=== PATIENT | female | born 1960 | race Caucasian/White ===

== ENCOUNTER 2022-11-10 10:46 | Emergency (ER) | payer BC ==
--- OUTSIDE RECORDS SUMMARY | 2022-11-10 11:33 | XMS REPORT | Continuity of Care Document ---
:1960 Author Organization [facility] t Address [address] [place] [address] [address] [place] [address] Care Team Providers Name Role Phone JOESPHINE DANG Primary Care Physician Unavailable JOSEPHINE DANG Attending Clinician Unavailable JAXON FRANK Attending Clinician Unavailable ASHLYN CERVANTES Attending Clinician Unavailable ASHLYN CERVANTES Attending Clinician Unavailable Josephine Dang MD Attending Clinician [phone] BR[place] [place] Attending Clinician Unavailable [place] DIRECTOR OF TEENAGE ACTIVITIESBryan Alvarez Attending Clinician Unknown, Attending Attending Clinician Unavailable Doctor Unassigned, [place] Attending Clinician Unavailable Lab, Ang - Db Attending Clinician Unavailable LIAN PAULINO Attending Clinician Unavailable Ebrahim Lian OZUNA Attending Clinician Court Lemus MD Attending Clinician COURT LEMUS Attending Clinician Unavailable Tahira ALEJANDRE Attending Clinician Unavailable Tahira Momin Attending Clinician Elizabeth Omer Attending Clinician ELIZABETH PEREZ Attending Clinician Unavailable KEREN BROOKS Attending Clinician Unavailable Keren Arboleda Attending Clinician Only, Ang Db Test Attending Clinician Unavailable Tahira ALEJANDRE Admitting Clinician Unavailable Payers Payer Name Policy Type Policy Number Effective Date Expiration Date [facility] [id number] 2020 00:00:00 Problems Condition Condition Condition Status Onset Resolution Last Treating Co mments Source Name Details Category Date Date Treatment Clinician Date No known No known Disease Unive rs active active ity of problems problems [facility] Hypertensi Hypertensi Disease Active U nivers on on ity of [facility] Hyperlipid Hyperlipid Disease Active U nivers emia emia ity of [facility] Gout Gout Disease Active Univers ity [facility] Allergies, Adverse Reactions, Alerts Allergy Allergy Status Severity Reaction(s) Onset Inactive Treating Comm ents Source Name Type Date Date Clinician CODEINE DRUG Active High Hallucinates 2021-03 Uni vers INGREDI 05-05 ity of 00:00: [place] [facility] Branch Codeine Propensi Active Hallucinatio 2021-03 U nivers ty to ns 05-05 ity of adverse 00:00: [place] reaction 00 Medical s Branch NO KNOWN Drug Active Univers ALLERGIE Class ity of S [facility] Social History Social Habit Start Date Stop Date Quantity Comments Source Exposure to 2022-07-17 2022-07-27 Not sure [facility] SARS-CoV-2 00:00:00 09:50:00 [facility] (event) [place] Alcohol intake 2022-07-27 2022-07-27 Lifetime University of 00:00:00 00:00:00 non-drinker [facility] (finding) [place] Tobacco use and 2020-12-17 2020-12-17 Smokeless tobacco Un iversity of exposure 00:00:00 00:00:00 non-user [facility] Sex [birth year] Universit y of 00:00:00 00:00:00 [facility] Smoking Status Start Date Stop Date Source Never smoked tobacco [facility] Medications Ordered Filled Start Stop Current Ordering Indication Dosage Frequency Signature Comments Components Source Medication Medication Date Date Medication? Clinician (SIG) Name Name indomethaci Yes [id number] 75mg Take 1 Univers n 75 mg CR 5-31 9108 capsule by ity of capsule 00:00: mouth 2 (two) Medical times [place] daily with meals as needed for Pain (scale 7-10). methylPREDN Yes [id number] follow Univers ISolone 07-27 package ity of (MEDROL, 00:00: directions Milad as CYNTHIA,) 4 mg 00 Medical tablets Branch methylPREDN 3-0 Yes [id number] follow Univers ISolone 5-01 package ity of (MEDROL, 00:00: directions [place] as CYNTHIA,) 4 mg 00 Medical tablets Branch methylPREDN 3-0 Yes [id number] follow Univers ISolone 5-01 package ity of (MEDROL, 00:00: directions [place] as CYNTHIA,) 4 mg 00 Medical tablets Branch methylPREDN 3-0 Yes [id number] follow Univers ISolone 5-01 package ity of (MEDROL, 00:00: directions [place] CYNTHIA,) 4 mg 00 Medical tablets Branch methylPREDN 3-0 Yes [id number] follow Univers ISolone 5-01 package ity of (MEDROL, 00:00: directions [place] CYNTHIA,) 4 mg 00 Medical tablets Branch methylPREDN 3-0 Yes [id number] follow Univers ISolone 5-01 package ity of (MEDROL, 00:00: directions [place] CYNTHIA,) 4 mg 00 Medical tablets Branch benzonatate 2022-0 2022- No [id number] 200mg Take 1 Univers 200 mg 5-01 05-12 capsule by ity of capsule 00:00: 04:59 mouth 3 [place] 00 :00 (three) Medical times Branch daily as needed for Cough for up to 10 days. benzonatate 2022-0 2022- No [id number] 200mg Take 1 Univers 200 mg 5-01 05-12 capsule by ity of capsule 00:00: 04:59 mouth 3 [place] 00 :00 (three) Medical times Branch daily as needed for Cough for up to 10 days. benzonatate 2022-0 2022- No [id number] 200mg Take 1 Univers 200 mg 5-01 05-12 capsule by ity of capsule 00:00: 04:59 mouth 3 [place] 00 :00 (three) Medical times Branch daily as needed for Cough for up to 10 days. benzonatate 2022-0 2022- No [id number] 200mg Take 1 Univers 200 mg 5-01 05-12 capsule by ity of capsule 00:00: 04:59 mouth 3 [place] 00 :00 (three) Medical times Branch daily as needed for Cough for up to 10 days. amoxicillin 2022-0 2022- No [id number] 1{tbl} Take 1 Univers -clavulanat 5-01 05-09 tablet by it y of e 00:00: 04:59 mouth in [place] (AUGMENTIN) 00 :00 the Medical 875-125 mg morning Branch per tablet and 1 tablet in the evening. Do all this for 7 days. amoxicillin 2022-0 2023- No [id number] 1{tbl} Take 1 Univers -clavulanat 5-01 05-09 tablet by it y of e 00:00: 04:59 mouth in [place] (AUGMENTIN) 00 :00 the Medical 875-125 mg morning Branch per tablet and 1 tablet in the evening. Do all this for 7 days. fexofenadin 2022-0 Yes 180mg Take 1 Uni vers e 180 mg 4-13 tablet by ity of tablet 10:04: mouth in [place] 31 the Medical morning. Branch cholecalcif 2022-0 Yes 1000U Take 1 Uni vers luna, 4-13 tablet by ity of vitamin D3, 10:04: [place] (VITAMIN 31 the Medical D3) 25 mcg morning. Branc h (1,000 unit) tablet cranberry 0 Yes 1{tbl} Take 1 Univ ers fruit 4-13 tablet by ity of concentrate 10:04: mouth in [place] (AZO 31 the Medical CRANBERRY morning. Branch ORAL) cromolyn 2022-0 Yes 2{spray Use 2 Unive rs (NASALCROM) 4-13 } Sprays in ity of 5.2 10:04: each [place] mg/spray (4 31 nostril Medic al %) nasal once daily Branc h spray as needed for Other (allergies ). propylene 2022-0 Yes 2[drp] Place 2 Uni vers glycol/peg 4-13 Drops in ity o f 400/PF 10:04: each eye 2 [place] (SYSTANE 31 (two) Medical ULTRA, PF, times Branch OPHTHALMIC) daily as needed. fexofenadin 2022-0 Yes 180mg Take 1 Uni vers e 180 mg 4-13 tablet by ity of tablet 10:04: mouth in [place] 31 the Medical morning. Branch cholecalcif 2022-0 Yes 1000U Take 1 Uni vers luna, 4-13 tablet by ity of vitamin D3, 10:04: mouth in [place] (VITAMIN 31 the Medical D3) 25 mcg morning. Branc h (1,000 unit) tablet cranberry 2023-0 Yes 1{tbl} Take 1 Univ ers fruit 4-13 tablet by ity of concentrate 10:04: mouth in [place] (AZO 31 the Medical CRANBERRY morning. Branch ORAL) cromolyn 2023-0 Yes 2{spray Use 2 Unive rs (NASALCROM) 4-13 } Sprays in ity of 5.2 10:04: each [place] mg/spray (4 31 nostril Medic al %) nasal once daily Branc h spray as needed for Other (allergies ). propylene 2023-0 Yes 2[drp] Place 2 Uni vers glycol/peg 4-13 Drops in ity o f 400/PF 10:04: each eye 2 [place] (SYSTANE 31 (two) Medical ULTRA, PF, times Branch OPHTHALMIC) daily as needed. fexofenadin 2023-0 Yes 180mg Take 1 Uni vers e 180 mg 4-13 tablet by ity of tablet 10:04: mouth in [place] [address] the Medical morning. Branch cholecalcif 2023-0 Yes 1000U Take 1 Uni vers luna, 4-13 tablet by ity of vitamin D3, 10:04: mouth in [place] (VITAMIN 31 the Medical D3) 25 mcg morning. Branc h (1,000 unit) tablet cranberry 3-0 Yes 1{tbl} Take 1 Univ ers fruit 4-13 tablet by ity of concentrate 10:04: mouth in [place] (AZO 31 the Medical CRANBERRY morning. Branch ORAL) cromolyn 2023-0 Yes 2{spray Use 2 Unive rs (NASALCROM) 4-13 } Sprays in ity of 5.2 10:04: each [place] mg/spray (4 31 nostril Medic al %) nasal once daily Branc h spray as needed for Other (allergies ). propylene 2023-0 Yes 2[drp] Place 2 Uni vers glycol/peg 4-13 Drops in ity o f 400/PF 10:04: each eye 2 [place] (SYSTANE 31 (two) Medical ULTRA, PF, times Branch OPHTHALMIC) daily as needed. fexofenadin 2023-0 Yes 180mg Take 1 Uni vers e 180 mg 4-13 tablet by ity of tablet 10:04: mouth in [place] 31 the Medical morning. Branch cholecalcif 2023-0 Yes 1000U Take 1 Uni vers luna, 4-13 tablet by ity of vitamin D3, 10:04: mouth in [place] (VITAMIN 31 the Medical D3) 25 mcg morning. Branc h (1,000 unit) tablet cranberry 3-0 Yes 1{tbl} Take 1 Univ ers fruit 4-13 tablet by ity of concentrate 10:04: mouth in [place] (AZO 31 the Medical CRANBERRY morning. Branch ORAL) cromolyn 2023-0 Yes 2{spray Use 2 Unive rs (NASALCROM) 4-13 } Sprays in ity of 5.2 10:04: each [place] mg/spray (4 31 nostril Medic al %) nasal once daily Branc h spray as needed for Other (allergies ). propylene 2023-0 Yes 2[drp] Place 2 Uni vers glycol/peg 4-13 Drops in ity o f 400/PF 10:04: each eye 2 [place] (SYSTANE 31 (two) Medical ULTRA, PF, times Branch OPHTHALMIC) daily as needed. fexofenadin 2023-0 Yes 180mg Take 1 Uni vers e 180 mg 4-13 tablet by ity of tablet 10:04: mouth in [place] [address] the Medical morning. [place] cholecalcif 3-0 Yes 1000U Take 1 Uni vers luna, 4-13 tablet by ity of vitamin D3, 10:04: mouth in [place] (VITAMIN 31 the Medical D3) 25 mcg morning. Branc h (1,000 unit) tablet cranberry 3-0 Yes 1{tbl} Take 1 Univ ers fruit 4-13 tablet by ity of concentrate 10:04: mouth in [place] (AZO 31 the Medical CRANBERRY morning. Branch ORAL) cromolyn 2023-0 Yes 2{spray Use 2 Unive rs (NASALCROM) 4-13 } Sprays in ity of 5.2 10:04: each [place] mg/spray (4 31 nostril Medic al %) nasal once daily Branc h spray as needed for Other (allergies ). propylene 2023-0 Yes 2[drp] Place 2 Uni vers glycol/peg 4-13 Drops in ity o f 400/PF 10:04: each eye 2 [place] (SYSTANE 31 (two) Medical ULTRA, PF, times Branch OPHTHALMIC) daily as needed. fexofenadin 2023-0 Yes 180mg Take 1 Uni vers e 180 mg 4-13 tablet by ity of tablet 10:04: mouth in [place] 31 the Medical morning. Branch cholecalcif 2023-0 Yes 1000U Take 1 Uni vers luna, 4-13 tablet by ity of vitamin D3, 10:04: mouth in [place] (VITAMIN 31 the Medical D3) 25 mcg morning. Branc h (1,000 unit) tablet cranberry 2023-0 Yes 1{tbl} Take 1 Univ ers fruit 4-13 tablet by ity of concentrate 10:04: mouth in [place] (AZO 31 the Medical CRANBERRY morning. Branch ORAL) cromolyn 2023-0 Yes 2{spray Use 2 Unive rs (NASALCROM) 4-13 } Sprays in ity of 5.2 10:04: each [place] mg/spray (4 31 nostril Medic al %) nasal once daily Branc h spray as needed for Other (allergies ). propylene 2023-0 Yes 2[drp] Place 2 Uni vers glycol/peg 4-13 Drops in ity o f 400/PF 10:04: each eye 2 [place] (SYSTANE 31 (two) Medical ULTRA, PF, times [place] OPHTHALMIC) daily as needed. fexofenadin 2023-0 Yes 180mg Take 1 Uni vers e 180 mg 4-13 tablet by ity of tablet 10:04: mouth in [place] 31 the Medical morning. Branch cholecalcif 2023-0 Yes 1000U Take 1 Uni vers luna, 4-13 tablet by ity of vitamin D3, 10:04: mouth in [place] (VITAMIN 31 the Medical D3) 25 mcg morning. Branc h (1,000 unit) tablet cranberry 2023-0 Yes 1{tbl} Take 1 Univ ers fruit 4-13 tablet by ity of concentrate 10:04: mouth in [place] (AZO 31 the Medical CRANBERRY morning. Branch ORAL) cromolyn 2023-0 Yes 2{spray Use 2 Unive rs (NASALCROM) 4-13 } Sprays in ity of 5.2 10:04: each [place] mg/spray (4 31 nostril Medic al %) nasal once daily Branc h spray as needed for Other (allergies ). propylene 2023-0 Yes 2[drp] Place 2 Uni vers glycol/peg 4-13 Drops in ity o f 400/PF 10:04: each eye 2 [place] (SYSTANE 31 (two) Medical ULTRA, PF, times Branch OPHTHALMIC) daily as needed. fexofenadin 2023-0 Yes 180mg Take 1 Uni vers e 180 mg 4-13 tablet by ity of tablet 10:04: mouth in [place] 31 the Medical morning. [place] cholecalcif 2023-0 Yes 1000U Take 1 Uni vers luna, 4-13 tablet by ity of vitamin D3, 10:04: mouth in [place] (VITAMIN 31 the Medical D3) 25 mcg morning. Branc h (1,000 unit) tablet cranberry 2023-0 Yes 1{tbl} Take 1 Univ ers fruit 4-13 tablet by ity of concentrate 10:04: mouth in [place] (AZO 31 the Medical CRANBERRY morning. Branch ORAL) cromolyn 2023-0 Yes 2{spray Use 2 Unive rs (NASALCROM) 4-13 } Sprays in ity of 5.2 10:04: each [place] mg/spray (4 31 nostril Medic al %) nasal once daily Branc h spray as needed for Other (allergies ). propylene 2023-0 Yes 2[drp] Place 2 Uni vers glycol/peg 4-13 Drops in ity o f 400/PF 10:04: each eye 2 [place] (SYSTANE 31 (two) Medical ULTRA, PF, times [place] OPHTHALMIC) daily as needed. fexofenadin 2023-0 Yes 180mg Take 1 Uni vers e 180 mg 4-13 tablet by ity of tablet 10:04: mouth in [place] [address] the Medical morning. [place] cholecalcif 2023-0 Yes 1000U Take 1 Uni vers luna, 4-13 tablet by ity of vitamin D3, 10:04: mouth in [place] (VITAMIN 31 the Medical D3) 25 mcg morning. Branc h (1,000 unit) tablet cranberry 2023-0 Yes 1{tbl} Take 1 Univ ers fruit 4-13 tablet by ity of concentrate 10:04: mouth in [place] (AZO 31 the Medical CRANBERRY morning. Branch ORAL) cromolyn 2023-0 Yes 2{spray Use 2 Unive rs (NASALCROM) 4-13 } Sprays in ity of 5.2 10:04: each [place] mg/spray (4 31 nostril Medic al %) nasal once daily Branc h spray as needed for Other (allergies ). propylene 2022-0 Yes 2[drp] Place 2 Uni vers glycol/peg 4-13 Drops in ity o f 400/PF 10:04: each eye 2 [place] (SYSTANE 31 (two) Medical ULTRA, PF, times Branch OPHTHALMIC) daily as needed. fexofenadin 0 Yes 180mg Take 1 Uni vers e 180 mg 4-13 tablet by ity of tablet 10:04: mouth in [place] 31 the Medical morning. Branch cholecalcif 0 Yes 1000U Take 1 Uni vers luna, 4-13 tablet by ity of vitamin D3, 10:04: mouth in [place] (VITAMIN 31 the Medical D3) 25 mcg morning. Branc h (1,000 unit) tablet cranberry Yes 1{tbl} Take 1 Univ ers fruit 4-13 tablet by ity of concentrate 10:04: mouth in [place] (AZO 31 the Medical CRANBERRY morning. Branch ORAL) cromolyn 0 Yes 2{spray Use 2 Unive rs (NASALCROM) 4-13 } Sprays in ity of 5.2 10:04: each [place] mg/spray (4 31 nostril Medic al %) nasal once daily Branc h spray as needed for Other (allergies ). propylene 2022-0 Yes 2[drp] Place 2 Uni vers glycol/peg 4-13 Drops in ity o f 400/PF 10:04: each eye 2 [place] (SYSTANE 31 (two) Medical ULTRA, PF, times [place] OPHTHALMIC) daily as needed. atorvastati Yes [id number] 20mg Take 1 Univers n 20 mg 4-13 tablet by ity of tablet 00:00: mouth in [place] 00 the Medical morning. Branch losartan-hy 2022-0 Yes [id number] 1{tbl} Take 1 Univers drochloroth 4-13 tablet by ity of iazide 00:00: mouth in [place] 100-12.5 mg 00 the Medical per tablet morning. Branc h allopurinoL 2022-0 Yes [id number] 100mg Take 1 Univers 100 mg 4-13 9108 tablet by ity of tablet 00:00: mouth in [place] 00 the Medical morning. Branch atorvastati 3-0 Yes [id number] 20mg Take 1 Univers n 20 mg 4-13 tablet by ity of tablet 00:00: mouth in [place] 00 the Medical morning. Branch losartan-hy 2022-0 Yes [id number] 1{tbl} Take 1 Univers drochloroth 4-13 tablet by ity of iazide 00:00: mouth in [place] 100-12.5 mg 00 the Medical per tablet morning. Branc h allopurinoL 2022-0 Yes [id number] 100mg Take 1 Univers 100 mg 4-13 9108 tablet by ity of tablet 00:00: mouth in [place] 00 the Medical morning. Branch atorvastati 2022-0 Yes [id number] 20mg Take 1 Univers n 20 mg 4-13 tablet by ity of tablet 00:00: mouth in [place] 00 the Medical morning. Branch losartan-hy 2022-0 Yes [id number] 1{tbl} Take 1 Univers drochloroth 4-13 tablet by ity of iazide 00:00: mouth in [place] 100-12.5 mg 00 the Medical per tablet morning. Branc h allopurinoL 2022-0 Yes [id number] 100mg Take 1 Univers 100 mg 4-13 9108 tablet by ity of tablet 00:00: mouth in [place] 00 the Medical morning. Branch atorvastati 2022-0 Yes [id number] 20mg Take 1 Univers n 20 mg 4-13 tablet by ity of tablet 00:00: mouth in [place] 00 the Medical morning. Branch losartan-hy 2022-0 Yes [id number] 1{tbl} Take 1 Univers drochloroth 4-13 tablet by ity of iazide 00:00: mouth in [place] 100-12.5 mg 00 the Medical per tablet morning. Branc h allopurinoL 3-0 Yes [id number] 100mg Take 1 Univers 100 mg 4-13 9108 tablet by ity of tablet 00:00: mouth in [place] 00 the Medical morning. Branch atorvastati 3-0 Yes [id number] 20mg Take 1 Univers n 20 mg 4-13 tablet by ity of tablet 00:00: mouth in [place] 00 the Medical morning. Branch losartan-hy 2022-0 Yes [id number] 1{tbl} Take 1 Univers drochloroth 4-13 tablet by ity of iazide 00:00: mouth in [place] 100-12.5 mg 00 the Medical per tablet morning. Bran h allopurinoL 2022-0 Yes [id number] 100mg Take 1 Univers 100 mg 4-13 9108 tablet by ity of tablet 00:00: mouth in [place] 00 the Medical morning. Branch atorvastati 2022-0 Yes [id number] 20mg Take 1 Univers n 20 mg 4-13 tablet by ity of tablet 00:00: mouth in [place] 00 the Medical morning. Branch losartan-hy 2022-0 Yes [id number] 1{tbl} Take 1 Univers drochloroth 4-13 tablet by ity of iazide 00:00: mouth in [place] 100-12.5 mg 00 the Medical per tablet morning. Bran h allopurinoL 2022-0 Yes [id number] 100mg Take 1 Univers 100 mg 4-13 9108 tablet by ity of tablet 00:00: mouth in [place] 00 the Medical morning. Branch atorvastati 2022-0 Yes [id number] 20mg Take 1 Univers n 20 mg 4-13 tablet by ity of tablet 00:00: mouth in [place] 00 the Medical morning. Branch losartan-hy 2022-0 Yes [id number] 1{tbl} Take 1 Univers drochloroth 4-13 tablet by ity of iazide 00:00: mouth in [place] 100-12.5 mg 00 the Medical per tablet morning. Bran h allopurinoL 2022-0 Yes [id number] 100mg Take 1 Univers 100 mg 4-13 9108 tablet by ity of tablet 00:00: mouth in [place] 00 the Medical morning. Branch atorvastati 2022-0 Yes [id number] 20mg Take 1 Univers n 20 mg 4-13 tablet by ity of tablet 00:00: mouth in [place] 00 the Medical morning. Branch losartan-hy 2022-0 Yes [id number] 1{tbl} Take 1 Univers drochloroth 4-13 tablet by ity of iazide 00:00: mouth in [place] 100-12.5 mg 00 the Medical per tablet morning. Bran h allopurinoL 3-0 Yes [id number] 100mg Take 1 Univers 100 mg 4-13 9108 tablet by ity of tablet 00:00: mouth in [place] 00 the Medical morning. Branch atorvastati Yes [id number] 20mg Take 1 Univers n 20 mg 4-13 tablet by ity of tablet 00:00: mouth in [place] 00 the Medical morning. Branch losartan-hy 0 Yes [id number] 1{tbl} Take 1 Univers drochloroth 4-13 tablet by ity of iazide 00:00: mouth in [place] 100-12.5 mg 00 the Medical per tablet morning. [facility] h allopurinoL Yes [id number] 100mg Take 1 Univers 100 mg 4-13 9108 tablet by ity of tablet 00:00: mouth in [place] 00 the Medical morning. Branch atorvastati Yes [id number] 20mg Take 1 Univers n 20 mg 4-13 tablet by ity of tablet 00:00: mouth in [place] 00 the Medical morning. Branch losartan-hy Yes [id number] 1{tbl} Take 1 Univers drochloroth 4-13 tablet by ity of iazide 00:00: mouth in [place] 100-12.5 mg 00 the Medical per tablet morning. [facility] h allopurinoL Yes [id number] 100mg Take 1 Univers 100 mg 4-13 9108 tablet by ity of tablet 00:00: mouth in [place] 00 the Medical morning. [place] predniSONE 2021-03- No [id number] 40mg Take 2 U nivers 20 mg 2-07 12-13 tablets by ity of tablet 00:00: 05:59 mouth in [place] 00 :00 the Medical morning Branch for 5 days. azelastine 2021-03 Yes [id number] 1{spray Use 1 Univers 137 mcg 2-05 } [place] in ity of (0.1 %) 00:00: each [place] nasal spray 00 nostril in T[place] dical the Branch morning and 1 [place] in the evening. Use in each nostril as directed fluticasone 2021-03 Yes [id number] 1{spray Use 1 Univers propionate 2-05 } [place] in ity o f 50 00:00: each [place] mcg/actuati 00 nostril in T[place] dical on nasal the [facility] spray morning. cetirizine 2021-03 Yes [id number] 10mg Take 1 U nivers (ZYRTEC) 10 2-05 tablet by ity of mg tablet 00:00: [place] the Medical morning. Branch promethazin 2021-03 Yes [id number] 5mL Take 5 mL Univers e-dextromet 2-05 by mouth 4 it y of horphan 00:00: (four) [place] 6.25-15 00 times Medical mg/5 mL daily as Branch syrup needed for Cough. azelastine 2021-03 Yes [id number] 1{spray Use 1 Univers 137 mcg 2-05 } [place] in ity of (0.1 %) 00:00: each [place] nasal spray 00 nostril in Me dical the Branch morning and 1 [place] in the evening. Use in each nostril as directed fluticasone 2021-03 Yes [id number] 1{spray Use 1 Univers propionate 2-05 } [place] in ity o f 50 00:00: each [place] mcg/actuati 00 nostril in Me dical on nasal the Branch spray morning. cetirizine 2021-03 Yes [id number] 10mg Take 1 U nivers (ZYRTEC) 10 2-05 tablet by ity of mg tablet 00:00: [place] the Medical morning. Branch promethazin 2021-03 Yes [id number] 5mL Take 5 mL Univers e-dextromet 2-05 by mouth 4 it y of horphan 00:00: (four) [place] 6.25-15 00 times Medical mg/5 mL daily as Branch syrup needed for Cough. azelastine 2021-03 Yes [id number] 1{spray Use 1 Univers 137 mcg 2-05 } [place] in ity of (0.1 %) 00:00: each [place] nasal spray 00 nostril in Me dical the Branch morning and 1 [place] in the evening. Use in each nostril as directed fluticasone 2021-03 Yes [id number] 1{spray Use 1 Univers propionate 2-05 } [place] in ity o f 50 00:00: each [place] mcg/actuati 00 nostril in Me dical on nasal the Branch spray morning. cetirizine 2021-03 Yes [id number] 10mg Take 1 U nivers (ZYRTEC) 10 2-05 tablet by ity of mg tablet 00:00: [place] the Medical morning. Branch promethazin 2021-03 Yes [id number] 5mL Take 5 mL Univers e-dextromet 2-05 by mouth 4 it y of horphan 00:00: (four) [place] 6.25-15 00 times Medical mg/5 mL daily as Branch syrup needed for Cough. azelastine 2021-03 Yes [id number] 1{spray Use 1 Univers 137 mcg 2-05 } [place] in ity of (0.1 %) 00:00: each [place] nasal spray 00 nostril in Me dical the Branch morning and 1 [place] in the evening. Use in each nostril as directed fluticasone 2021-03 Yes [id number] 1{spray Use 1 Univers propionate 2-05 } [place] in ity o f 50 00:00: each [place] mcg/actuati 00 nostril in Me dical on nasal the Branch spray morning. cetirizine 2021-03 Yes [id number] 10mg Take 1 U nivers (ZYRTEC) 10 2-05 tablet by ity of mg tablet 00:00: [place] the Medical morning. Branch promethazin 2021-03 Yes [id number] 5mL Take 5 mL Univers e-dextromet 2-05 by mouth 4 it y of horphan 00:00: (four) [place] 6.25-15 00 times Medical mg/5 mL daily as Branch syrup needed for Cough. azelastine 2021-03 Yes [id number] 1{spray Use 1 Univers 137 mcg 2-05 } [place] in ity of (0.1 %) 00:00: each [place] nasal spray 00 nostril in Me dical the Branch morning and 1 [place] in the evening. Use in each nostril as directed fluticasone 2021-03 Yes [id number] 1{spray Use 1 Univers propionate 2-05 } [place] in ity o f 50 00:00: each [place] mcg/actuati 00 nostril in Me dical on nasal the Branch spray morning. cetirizine 2021-03 Yes [id number] 10mg Take 1 U nivers (ZYRTEC) 10 2-05 tablet by ity of mg tablet 00:00: [place] the Medical morning. Branch promethazin 2021-03 Yes [id number] 5mL Take 5 mL Univers e-dextromet 2-05 by mouth 4 it y of horphan 00:00: (four) [place] 6.25-15 00 times Medical mg/5 mL daily as Branch syrup needed for Cough. azelastine 2021-03 Yes [id number] 1{spray Use 1 Univers 137 mcg 2-05 } [place] in ity of (0.1 %) 00:00: each [place] nasal spray 00 nostril in Me dical the Branch morning and 1 [place] in the evening. Use in each nostril as directed fluticasone 2021-03 Yes [id number] 1{spray Use 1 Univers propionate 2-05 } [place] in ity o f 50 00:00: each [place] mcg/actuati 00 nostril in Me dical on nasal the Branch spray morning. cetirizine 2021-03 Yes [id number] 10mg Take 1 U nivers (ZYRTEC) 10 2-05 tablet by ity of mg tablet 00:00: [place] the Medical morning. Branch promethazin 2021-03 Yes [id number] 5mL Take 5 mL Univers e-dextromet 2-05 by mouth 4 it y of horphan 00:00: (four) [place] 6.25-15 00 times Medical mg/5 mL daily as Branch syrup needed for Cough. azelastine 2021-03 Yes [id number] 1{spray Use 1 [facility] 137 mcg 2-05 } [place] in ity of (0.1 %) 00:00: each [place] nasal spray 00 nostril in Me dical the Branch morning and 1 [place] in the evening. Use in each nostril as directed fluticasone 2021-03 Yes [id number] 1{spray Use 1 [facility] propionate 2-05 } [place] in ity o f 50 00:00: each [place] mcg/actuati 00 nostril in Me dical on nasal the Branch spray morning. cetirizine 2021-03 Yes [id number] 10mg Take 1 U nivers (ZYRTEC) 10 2-05 tablet by [place] mg tablet 00:00: [place] the [facility] morning. Branch promethazin 2021-03 Yes [id number] 5mL Take 5 mL [facility] e-dextromet 2-05 by mouth 4 it y of horphan 00:00: (four) [place] 6.25-15 00 times Medical mg/5 mL daily as Branch syrup needed for Cough. azelastine 2021-03 Yes [id number] 1{spray Use 1 [facility] 137 mcg 2-05 } [place] in ity of (0.1 %) 00:00: each [place] nasal spray 00 nostril in Me dical the Branch morning and 1 [place] in the evening. Use in each nostril as directed fluticasone 2021-03 Yes [id number] 1{spray Use 1 [facility] propionate 2-05 } [place] in ity o f 50 00:00: each [place] mcg/actuati 00 nostril in Me dical on nasal the Branch spray morning. cetirizine 2021-03 Yes [id number] 10mg Take 1 [facility] nivers (ZYRTEC) 10 2-05 tablet by [facility]y [place] mg tablet 00:00: [place] the [facility] morning. Branch promethazin 2021-03 Yes [id number] 5mL Take 5 mL [facility] e-dextromet 2-05 by mouth 4 it y of horphan 00:00: (four) [place] 6.25-15 00 times Medical mg/5 mL daily as Branch syrup needed for Cough. azelastine 2021-03 Yes [id number] 1{spray Use 1 [facility] 137 mcg 2-05 } [place] in ity of (0.1 %) 00:00: each [place] nasal spray 00 nostril in Me dical the Branch morning and 1 [place] in the evening. Use in each nostril as directed fluticasone 2021-03 Yes [id number] 1{spray Use 1 [facility] propionate 2-05 } [place] in ity o f 50 00:00: each [place] mcg/actuati 00 nostril in Me dical on nasal the Branch spray morning. cetirizine 2021-03 Yes [id number] 10mg Take 1 [facility] n[facility] (ZYRTEC) 10 2-05 tablet by ity of mg tablet 00:00: [place] 00 the Medical morning. Branch promethazin 2021-03 Yes [id number] 5mL Take 5 mL [facility] e-dextromet 2-05 by mouth 4 it y of horphan 00:00: (four) [place] 6.25-15 00 times Medical mg/5 mL daily as Branch syrup needed for Cough. azelastine 2021-03 Yes [id number] 1{spray Use 1 [facility] 137 mcg 2-05 } [place] in ity of (0.1 %) 00:00: each [place] nasal spray 00 nostril in Me dical the Branch morning and 1 [place] in the evening. Use in each nostril as directed fluticasone 2021-03 Yes [id number] 1{spray Use 1 [facility] propionate 2-05 } [place] in ity o f 50 00:00: each [place] mcg/actuati 00 nostril in Me dical on nasal the Branch spray morning. cetirizine 2021-03 Yes [id number] 10mg Take 1 [facility] n[facility] (ZYRTEC) 10 2-05 tablet by ity of mg tablet 00:00: [place] 00 the Medical morning. Branch promethazin 2021-03 Yes [id number] 5mL Take 5 mL [facility] e-dextromet 2-05 by mouth 4 it y of horphan 00:00: (four) [place] 6.25-15 00 times Medical mg/5 mL daily as Branch syrup needed for Cough. azelastine 2021-03 Yes [id number] 1{spray Use 1 [facility] 137 mcg 2-05 } [place] in ity of (0.1 %) 00:00: each [place] nasal spray 00 nostril in Me dical the Branch morning and 1 [place] in the evening. Use in each nostril as directed fluticasone 2021-03 Yes [id number] 1{spray Use 1 [facility] propionate 2-05 } [place] in ity o f 50 00:00: each [place] mcg/actuati 00 nostril in Me dical on nasal the Branch spray morning. cetirizine 2021-03 Yes [id number] 10mg Take 1 [facility] n[facility] (ZYRTEC) 10 2-05 tablet by ity of mg tablet 00:00: [place] 00 the Medical morning. Branch promethazin 2021-03 Yes [id number] 5mL Take 5 mL [facility] e-dextromet 2-05 by mouth 4 it y of horphan 00:00: (four) [place] 6.25-15 00 times Medical mg/5 mL daily as Branch syrup needed for Cough. azelastine 2021-03 Yes [id number] 1{spray Use 1 [facility] 137 mcg 2-05 } [place] in ity of (0.1 %) 00:00: each [place] nasal spray 00 nostril in Me dical the Branch morning and 1 [place] in the evening. Use in each nostril as directed fluticasone 2021-03 Yes [id number] 1{spray Use 1 [facility] propionate 2-05 } [place] in ity o f 50 00:00: each [place] mcg/actuati 00 nostril in Me dical on nasal the Branch spray morning. cetirizine 2021-03 Yes [id number] 10mg Take 1 [facility] nivers (ZYRTEC) 10 2-05 tablet by ity of mg tablet 00:00: [place] 00 the Medical morning. Branch promethazin 2021-03 Yes [id number] 5mL Take 5 mL [facility] e-dextromet 2-05 by mouth 4 it y of horphan 00:00: (four) [place] 6.25-15 00 times Medical mg/5 mL daily as Branch syrup needed for Cough. azelastine 2021-03 Yes [id number] 1{spray Use 1 [facility] 137 mcg 2-05 } [place] in ity of (0.1 %) 00:00: each [place] nasal spray 00 nostril in Me dical the Branch morning and 1 [place] in the evening. Use in each nostril as directed fluticasone 2021-03 Yes [id number] 1{spray Use 1 [facility] propionate 2-05 } [place] in ity o f 50 00:00: each [place] mcg/actuati 00 nostril in Me dical on nasal the Branch spray morning. cetirizine 2021-03 Yes [id number] 10mg Take 1 [facility] n[facility] (ZYRTEC) 10 2-05 tablet by ity of mg tablet 00:00: [place] 00 the Medical morning. Branch promethazin 2021-03 Yes [id number] 5mL Take 5 mL [facility] e-dextromet 2-05 by mouth 4 it y of horphan 00:00: (four) [place] 6.25-15 00 times Medical mg/5 mL daily as Branch syrup needed for Cough. azelastine 2021-03 Yes [id number] 1{spray Use 1 [facility] 137 mcg 2-05 } [place] in ity of (0.1 %) 00:00: each [place] nasal spray 00 nostril in Me dical the Branch morning and 1 [place] in the evening. Use in each nostril as directed fluticasone 2021-03 Yes [id number] 1{spray Use 1 [facility] propionate 2-05 } [place] in ity o f 50 00:00: each [place] mcg/actuati 00 nostril in Me dical on nasal the Branch spray morning. cetirizine 2021-03 Yes [id number] 10mg Take 1 [facility] n[facility] (ZYRTEC) 10 2-05 tablet by ity of mg tablet 00:00: mouth [place] 00 the Medical morning. Branch promethazin 2021-03 Yes [id number] 5mL Take 5 mL [facility] e-dextromet 2-05 by mouth 4 it y of horphan 00:00: (four) [place] 6.25-15 00 times Medical mg/5 mL daily as Branch syrup needed for Cough. benzonatate 2021-03- No [id number] 200mg Take 2 [facility] 100 mg 2- 12-05 capsules ity of capsule 00:00: 00:00 by mouth [place] 00 :00 every 8 Medical (eight) Branch hours as needed for Cough. aspirin No 324mg 324 mg, Unive rs chewable 11-04- Oral, ity of tablet 324 08:00: 07:05 ONCE, 1 [place] mg 00 :00 dose, On Wed11/04/21 Branch at 0300, Routine traMADoL Yes [id number] 50mg Take 1 [facility] (ULTRAM) 50 -09 tablet by ity of mg tablet 00:00: mouth [place] 00 every 6 Medical (six) Branch hours as needed for Pain (scale 7-10). Indication s: acute pain traMADoL Yes [id number] 50mg Take 1 [facility] (ULTRAM) 50 8-09 tablet by ity of mg tablet 00:00: mouth [place] 00 every 6 Medical (six) Branch hours as needed for Pain (scale 7-10). Indication s: acute pain traMADoL 2021- No [id number] 50mg Take 1 Univer s (ULTRAM) 50 11-04 12-05 tablet by it y of mg tablet 00:00: 00:00 mouth [place] 00 :00 every 6 Medical (six) Branch hours as needed for Pain (scale 7-10). Indication s: acute pain cephALEXin 2021- No [id number] 500mg Take 1 [facility] 500 mg 08-2810 capsule by ity of capsule 00:00: 04:59 mouth 4 [place] 00 :00 (four) Medical times Branch daily for 7 days. Nitrofurant 2021- No [id number] 100mg Take 1 [facility] oin&Nit. 1-10 16 capsule by ity of [place] 00:00: 05:59 mouth 2 [place] as 100 mg 00 :00 (two) Medical capsule times Branch daily with meals for 5 days. cyclobenzap Yes [id number] 10mg Take 1 [facility] rine 10 mg 9-21 tablet by ity of tablet 00:00: mouth at [place] [address] bedtime. Medical Branch cyclobenzap Yes [id number] 10mg Take 1 [facility] rine 10 mg 9-21 tablet by ity of tablet 00:00: mouth at [place] [address] bedtime. Medical Branch cyclobenzap Yes [id number] 10mg Take 1 [facility] rine 10 mg 9-21 tablet by ity of tablet 00:00: mouth at [place] [address] bedtime. Medical Branch cyclobenzap Yes [id number] 10mg Take 1 [facility] rine 10 mg 9-21 tablet by ity of tablet 00:00: mouth at [place] [address] bedtime. Medical Branch cyclobenzap Yes [id number] 10mg Take 1 [facility] rine 10 mg 9-21 tablet by ity of tablet 00:00: mouth at [place] [address] bedtime. Medical Branch cyclobenzap Yes [id number] 10mg Take 1 [facility] rine 10 mg 9-21 tablet by ity of tablet 00:00: mouth at [place] [address] bedtime. Medical Branch cyclobenzap 2021- No [id number] 10mg Take 1 [facility] rine 10 mg 9-21 12-05 tablet by ity of tablet 00:00: 00:00 mouth at [place] 00 :00 bedtime. Medical Branch atorvastati Yes 20mg Take 20 mg [facility] n 20 mg 8-28 by mouth ity of tablet 00:00: daily. [place] [facility] Branch atorvastati Yes 20mg Take 20 mg [facility] n 20 mg 8-28 by mouth ity of tablet 00:00: daily. [place] [facility] Branch atorvastati Yes 20mg Take 20 mg Univers n 20 mg 8-28 by mouth ity of tablet 00:00: daily. Medical Branch atorvastati Yes 20mg Take 20 mg [facility] n 20 mg 8-28 by mouth ity of tablet 00:00: daily. Medical Branch atorvastati Yes 20mg Take 20 mg [facility] n 20 mg 8-28 by mouth ity of tablet 00:00: daily. Medical Branch atorvastati Yes 20mg Take 20 mg [facility] n 20 mg 8-28 by mouth ity of tablet 00:00: daily. Medical Branch atorvastati Yes 20mg Take 20 mg Univers n 20 mg 8-28 by mouth ity of tablet 00:00: daily. Medical Branch atorvastati Yes 20mg Take 20 mg Univers n 20 mg 8-28 by mouth ity of tablet 00:00: daily. [facility] Branch atorvastati Yes 20mg Take 20 mg Univers n 20 mg 8-28 by mouth ity of tablet 00:00: daily. Medical Branch atorvastati Yes 20mg Take 20 mg Univers n 20 mg 8-28 by mouth ity of tablet 00:00: daily. Medical Branch atorvastati 2022- No 20mg Take 20 mg Univers n 20 mg 8-28 -13 by mouth ity of tablet 00:00: 00:00 daily. [place] 00 : Medical Branch atorvastati 2022- No 20mg Take 20 mg Univers n 20 mg 8-28 -13 by mouth ity of tablet 00:00: 00:00 daily. [place] 00 :00 Medical Branch losartan-hy Yes 1{tbl} Take 1 Un hol[facility] drochloroth 7-05 tablet by ity of iazide 00:00: mouth [place] 100-12.5 mg 00 daily. Medica l per tablet Branch allopurinoL Yes 100mg Take 100 U nivers 100 mg 7-05 mg by ity of tablet 00:00: mouth [place] 00 daily. Medical Branch losartan-hy Yes 1{tbl} Take 1 Un hol[facility] drochloroth 7-05 tablet by ity of iazide 00:00: mouth [place] 100-12.5 mg 00 daily. Medica l per tablet Branch allopurinoL Yes 100mg Take 100 U nivers 100 mg 7-05 mg by ity of tablet 00:00: mouth [place] 00 daily. Medical Branch losartan-hy Yes 1{tbl} Take 1 Un hol[facility] drochloroth 7-05 tablet by ity of iazide 00:00: mouth [place] 100-12.5 mg 00 daily. Medica l per tablet Branch losartan-hy Yes 1{tbl} Take 1 Un hol[facility] drochloroth 7-05 tablet by ity of iazide 00:00: mouth [place] 100-12.5 mg 00 daily. Medica l per tablet Branch allopurinoL Yes 100mg Take 100 U nivers 100 mg 7-05 mg by ity of tablet 00:00: mouth [place] 00 daily. Medical Branch allopurinoL Yes 100mg Take 100 U nivers 100 mg 7-05 mg by ity of tablet 00:00: mouth [place] 00 daily. Medical Branch losartan-hy Yes 1{tbl} Take 1 Un holly drochloroth 7-05 tablet by ity of iazide 00:00: mouth [place] 100-12.5 mg 00 daily. Medica l per tablet Branch allopurinoL Yes 100mg Take 100 U nivers 100 mg 7-05 mg by ity of tablet 00:00: mouth [place] 00 daily. Medical Branch losartan-hy Yes 1{tbl} Take 1 Un holly drochloroth 7-05 tablet by ity of iazide 00:00: mouth [place] 100-12.5 mg 00 daily. Medica l per tablet Branch allopurinoL Yes 100mg Take 100 U nivers 100 mg 7-05 mg by ity of tablet 00:00: mouth [place] 00 daily. Medical Branch losartan-hy Yes 1{tbl} Take 1 Un holly drochloroth 7-05 tablet by ity of iazide 00:00: mouth [place] 100-12.5 mg 00 daily. Medica l per tablet Branch allopurinoL Yes 100mg Take 100 U nivers 100 mg 7-05 mg by ity of tablet 00:00: mouth [place] 00 daily. Medical Branch losartan-hy Yes 1{tbl} Take 1 Un holly drochloroth 7-05 tablet by ity of iazide 00:00: mouth [place] 100-12.5 mg 00 daily. Medica l per tablet Branch allopurinoL Yes 100mg Take 100 U nivers 100 mg 7-05 mg by ity of tablet 00:00: mouth [place] 00 daily. Medical Branch losartan-hy Yes 1{tbl} Take 1 Un holly drochloroth 7-05 tablet by ity of iazide 00:00: mouth [place] 100-12.5 mg 00 daily. Medica l per tablet Branch allopurinoL Yes 100mg Take 100 U nivers 100 mg 7-05 mg by ity of tablet 00:00: mouth [place] 00 daily. Medical Branch losartan-hy Yes 1{tbl} Take 1 Un holly drochloroth 7-05 tablet by ity of iazide 00:00: mouth [place] 100-12.5 mg 00 daily. Medica l per tablet Branch allopurinoL Yes 100mg Take 100 U nivers 100 mg 7-05 mg by ity of tablet 00:00: mouth [place] 00 daily. Medical Branch losartan-hy 2022- No 1{tbl} Take 1 U nivers drochloroth 7-05 04-13 tablet by it y of iazide 00:00: 00:00 mouth [place] 100-12.5 mg 00 :00 daily. Medica l per tablet Branch allopurinoL 2020-0 2022- No 100mg Take 100 [facility] 100 mg 7-05 04-13 mg by ity of tablet 00:00: 00:00 mouth [place] 00 :00 daily. Medical Branch losartan-hy 0 2022- No 1{tbl} Take 1 U nivers drochloroth 7-05 04-13 tablet by it y of iazide 00:00: 00:00 mouth [place] 100-12.5 mg 00 :00 daily. Medica l per tablet Branch allopurinoL 2020-0 2022- No 100mg Take 100 [facility] 100 mg 7-05 04-13 mg by ity of tablet 00:00: 00:00 mouth [place] 00 :00 daily. Medical Branch Immunizations Ordered Filled Immunization Date Status Comments [facility] e Immunization Name Name SARS-COV-2 COVID-19 2022-07-09 Completed Unive rsity of NATALIA-SUCROSE 00:00:00 [place] Medica l VACCINE 12 YRS+, Branch BIVALENT 0.3ML, IM, (PFIZER DOYLE TOP BOOSTER) TDAP 2022-07-09 Completed University of 00:00:00 [facility] SARS-COV-2 COVID-19 2022-07-09 Completed Unive rsity of [place]CR[place] 00:00:00 [place] Medica l VACCINE 12 YRS+, Branch BIVALENT 0.3ML, IM, (PFIZER DOYLE TOP BOOSTER) TDAP 2022-07-09 Completed University of 00:00:00 [facility] SARS-COV-2 COVID-19 2022-07-09 Completed Unive rsity of [place]-SUCROSE 00:00:00 [place] [facility]ica l VACCINE 12 YRS+, Branch BIVALENT 0.3ML, IM, (PFIZER DOYLE TOP BOOSTER) TDAP 2022-07-09 Completed University of 00:00:00 [facility] SARS-COV-2 COVID-19 2022-07-09 Completed Unive rsity of [place] 00:00:00 [place] Medica l VACCINE 12 YRS+, Branch BIVALENT 0.3ML, IM, (PFIZER DOYLE TOP) TDAP 2022-07-09 Completed University of 00:00:00 [facility] SARS-COV-2 COVID-19 2022-07-09 Completed Unive rsity of [place] 00:00:00 [place] Medica l VACCINE 12 YRS+, Branch BIVALENT 0.3ML, IM, (PFIZER DOYLE TOP) TDAP 2022-07-09 Completed University of 00:00:00 [facility] SARS-COV-2 COVID-19 2022-07-09 Completed Unive rsity of [place] 00:00:00 [place] Medica l VACCINE 12 YRS+, Branch BIVALENT 0.3ML, IM, (PFIZER DOYLE TOP) TDAP 2022-07-09 Completed University of 00:00:00 [facility] SARS-COV-2 COVID-19 2022-07-09 Completed Unive rsity of [place] 00:00:00 [place] Medica l VACCINE 12 YRS+, Branch BIVALENT 0.3ML, IM, (PFIZER DOYLE TOP) TDAP 2022-07-09 Completed University of 00:00:00 [facility] SARS-COV-2 COVID-19 2022-07-09 Completed Unive rsity of [place]CR[place] 00:00:00 [place] Medica l VACCINE 12 YRS+, Branch BIVALENT 0.3ML, IM, (PFIZER DOYLE TOP) TDAP 2022-07-09 Completed University of 00:00:00 [facility] SARS-COV-2 COVID-19 2022-07-09 Completed Unive rsity of [place] 00:00:00 [place] Medica l VACCINE 12 YRS+, Branch BIVALENT 0.3ML, IM, (PFIZER DOYLE TOP) TDAP 2022-07-09 Completed University of 00:00:00 [facility] SARS-COV-2 COVID-19 2021-04-11 Completed Unive rsity of PFIZER VACCINE 00:00:00 [facility] SARS-COV-2 COVID-19 2021-04-11 Completed Unive rsity of PFIZER VACCINE 00:00:00 [facility] SARS-COV-2 COVID-19 2021-04-11 Completed Unive rsity of PFIZER VACCINE 00:00:00 [facility] SARS-COV-2 COVID-19 2021-04-11 Completed Unive rsity of PFIZER VACCINE 00:00:00 [facility] SARS-COV-2 COVID-19 2021-04-11 Completed Unive rsity of PFIZER VACCINE 00:00:00 [facility] SARS-COV-2 COVID-19 2021-04-11 Completed Unive rsity of PFIZER VACCINE 00:00:00 [facility] SARS-COV-2 COVID-19 2021-04-11 Completed Unive rsity of PFIZER VACCINE 00:00:00 [facility] SARS-COV-2 COVID-19 2021-04-11 Completed Unive rsity of PFIZER VACCINE 00:00:00 [facility] SARS-COV-2 COVID-19 2021-04-11 Completed Unive rsity of PFIZER VACCINE 00:00:00 [facility] SARS-COV-2 COVID-19 2021-04-11 Completed Unive rsity of PFIZER VACCINE 00:00:00 [facility] Influenza Virus 2021-01-10 Completed Universit y of Vaccine Quad .5 mL 00:00:00 [place] [facility] IM 6+ MO Branch Influenza Virus 2021-01-10 Completed Universit y of Vaccine [place] .5 mL 00:00:00 [place] [facility] IM 6+ MO Branch Influenza Virus 2021-01-10 Completed Universit y of Vaccine [place] .5 mL 00:00:00 [place] [facility] IM 6+ MO Branch Influenza Virus 2021-01-10 Completed Universit y of Vaccine [place] .5 mL 00:00:00 [place] [facility] IM 6+ MO Branch Influenza Virus 2021-01-10 Completed Universit y of Vaccine [place] .5 mL 00:00:00 [place] [facility] IM 6+ MO Branch Influenza Virus 2021-01-10 Completed Universit y of Vaccine [place] .5 mL 00:00:00 [place] [facility] IM 6+ MO Branch Influenza Virus 2021-01-10 Completed Universit y of Vaccine [place] .5 mL 00:00:00 [place] [facility] IM 6+ MO Branch Influenza Virus 2021-01-10 Completed Universit y of Vaccine [place] .5 mL 00:00:00 [place] [facility] IM 6+ MO Branch Influenza Virus 2021-01-10 Completed Universit y of Vaccine [place] .5 mL 00:00:00 [place] [facility] IM 6+ MO Branch Influenza Virus 2021-01-10 Completed Universit y of Vaccine [place] .5 mL 00:00:00 [place] [facility] 6+ MO Branch SARS-COV-2 COVID-19 2020-07-18 Completed Unive rsity of PFIZER VACCINE 00:00:00 [facility] SARS-COV-2 COVID-19 2020-07-18 Completed Unive rsity of PFIZER VACCINE 00:00:00 [facility] SARS-COV-2 COVID-19 2020-07-18 Completed Unive rsity of PFIZER VACCINE 00:00:00 [facility] SARS-COV-2 COVID-19 2020-07-18 Completed Unive rsity of PFIZER VACCINE 00:00:00 [facility] SARS-COV-2 COVID-19 2020-07-18 Completed Unive rsity of PFIZER VACCINE 00:00:00 [facility] SARS-COV-2 COVID-19 2020-07-18 Completed Unive rsity of PFIZER VACCINE 00:00:00 [facility] SARS-COV-2 COVID-19 2020-07-18 Completed Unive rsity of PFIZER VACCINE 00:00:00 [facility] SARS-COV-2 COVID-19 2020-07-18 Completed Unive rsity of PFIZER VACCINE 00:00:00 [facility] SARS-COV-2 COVID-19 2020-07-18 Completed Unive rsity of PFIZER VACCINE 00:00:00 [facility] SARS-COV-2 COVID-19 2020-07-18 Completed Unive rsity of PFIZER VACCINE 00:00:00 [facility] Branch SARS-COV-2 COVID-19 2020-06-27 Completed Unive rsity of PFIZER VACCINE 00:00:00 [facility] SARS-COV-2 COVID-19 2020-06-27 Completed Unive rsity of PFIZER VACCINE 00:00:00 [facility] SARS-COV-2 COVID-19 2020-06-27 Completed Unive rsity of PFIZER VACCINE 00:00:00 [facility] SARS-COV-2 COVID-19 2020-06-27 Completed Unive rsity of PFIZER VACCINE 00:00:00 [facility] SARS-COV-2 COVID-19 2020-06-27 Completed Unive rsity of PFIZER VACCINE 00:00:00 [facility] SARS-COV-2 COVID-19 2020-06-27 Completed Unive rsity of PFIZER VACCINE 00:00:00 [facility] SARS-COV-2 COVID-19 2020-06-27 Completed Unive rsity of PFIZER VACCINE 00:00:00 [facility] SARS-COV-2 COVID-19 2020-06-27 Completed Unive rsity of PFIZER VACCINE 00:00:00 [facility] SARS-COV-2 COVID-19 2020-06-27 Completed Unive rsity of PFIZER VACCINE 00:00:00 [facility] SARS-COV-2 COVID-19 2020-06-27 Completed Unive rsity of PFIZER VACCINE 00:00:00 [facility] Vital Signs Vital Name Observation Time Observation Value Comments Source Systolic blood 2022-07-27 14:51:00 139 mm[Hg] Univer sity of pressure [facility] Diastolic blood 2022-07-27 14:51:00 81 mm[Hg] Unive rsity of pressure [facility] Heart rate 2022-07-27 14:51:00 101 /min [facility] [place] [facility] Body temperature 2022-07-27 14:51:00 37.06 [place] [facility] [place] [facility] Respiratory rate 2022-07-27 14:51:00 16 /min [facility] [place] [facility] Body height 2022-07-27 14:51:00 167.6 cm [facility] [place] [facility] Body weight 2022-07-27 14:51:00 110.814 kg [facility] [place] [facility] BMI 2022-07-27 14:51:00 39.43 kg/m2 [facility] [place] [facility] Oxygen saturation in 2022-07-27 14:51:00 97 /min University of Arterial blood by [facility] Pulse oximetry Branch Systolic blood 2022-07-09 14:49:00 136 mm[Hg] Univer sity of pressure [place] [facility] Diastolic blood 2022-07-09 14:49:00 86 mm[Hg] Unive rsity of pressure [place] [facility] Heart rate 2022-07-09 14:49:00 76 /min [facility] [place] [facility] Body temperature 2022-07-09 14:49:00 36.83 [place] [facility] [place] [facility] Respiratory rate 2022-07-09 14:49:00 18 /min [facility] [place] [facility] Body height 2022-07-09 14:49:00 167.6 cm [facility] [place] [facility] Body weight 2022-07-09 14:49:00 111.857 kg [facility] [place] [facility] BMI 2022-07-09 14:49:00 39.80 kg/m2 [facility] [place] [facility] Oxygen saturation in 2022-07-09 14:49:00 96 /min University of Arterial blood by [employer] Pulse oximetry Branch Systolic blood 2022-03-04 16:53:00 130 mm[Hg] Univer sity of pressure [place] [facility] Diastolic blood 2022-03-04 16:53:00 82 mm[Hg] Unive rsity of pressure [place] [facility] Heart rate 2022-03-04 16:53:00 94 /min [facility] [place] [facility] Body temperature 2022-03-04 16:53:00 37.61 [place] [facility] [place] [facility] Respiratory rate 2022-03-04 16:53:00 16 /min [facility] [place] [facility] Body height 2022-03-04 16:53:00 167.6 cm [facility] [place] [facility] Body weight 2022-03-04 16:53:00 106.283 kg [facility] [place] [facility] BMI 2022-03-04 16:53:00 37.82 kg/m2 [facility] [place] [facility] Oxygen saturation in 2022-03-04 16:53:00 97 /min University of Arterial blood by [place] [facility] federico Pulse oximetry Branch Systolic blood 2022-03-02 20:37:00 116 mm[Hg] Univer sity of pressure [place] [facility] Diastolic blood 2022-03-02 20:37:00 70 mm[Hg] Unive rsity of pressure [place] [facility] Heart rate 2022-03-02 20:37:00 92 /min [facility] [place] [facility] Body temperature 2022-03-02 20:37:00 37.17 [place] [facility] [place] [facility] Respiratory rate 2022-03-02 20:37:00 18 /min [facility] [place] [facility] Body height 2022-03-02 20:37:00 167.6 cm [facility] [place] [facility] Body weight 2022-03-02 20:37:00 107.956 kg [facility] [place] [facility] BMI 2022-03-02 20:37:00 38.41 kg/m2 [facility] [place] [facility] Oxygen saturation in 2022-03-02 20:37:00 98 /min University of Arterial blood by [place] [facility] federico Pulse oximetry Branch Systolic blood 2021-11-04 05:40:00 139 mm[Hg] Univer sity of pressure [place] [facility] Diastolic blood 2021-11-04 05:40:00 54 mm[Hg] Unive rsity of pressure [place] [facility] Heart rate 2021-11-04 05:40:00 97 /min [facility] [place] [facility] Body temperature 2021-11-04 05:40:00 36.28 Ern[place] [facility] [place] [facility] Respiratory rate 2021-11-04 05:40:00 18 /min [facility] [place] [facility] Body height 2021-11-04 05:40:00 167.6 cm [facility] [place] [facility] Body weight 2021-11-04 05:40:00 108.863 kg [facility] [place] [facility] BMI 2021-11-04 05:40:00 38.74 kg/m2 [facility] [place] [facility] Oxygen saturation in 2021-11-04 05:40:00 97 /min University of Arterial blood by [facility] Pulse oximetry Branch Systolic blood 2021-08-28 22:55:00 126 mm[Hg] Univer sity of pressure [place] [facility] Diastolic blood 2021-08-28 22:55:00 86 mm[Hg] [facility] Heart rate 2021-08-28 22:55:00 86 /min [facility] Body temperature 2021-08-28 22:55:00 36.67 Ernestine [facility] Respiratory rate 2021-08-28 22:55:00 18 /min [facility] Body height 2021-08-28 22:55:00 167.6 cm [facility] Body weight 2021-08-28 22:55:00 108.863 kg [facility] [place] [facility] BMI 2021-08-28 22:55:00 38.74 kg/m2 [facility] Oxygen saturation in 2021-08-28 22:55:00 98 /min [facility] of Arterial blood by [facility] Pulse oximetry Branch Systolic blood 2021-04-07 23:58:00 136 mm[Hg] [facility] Diastolic blood 2021-04-07 23:58:00 79 mm[Hg] [facility]ive [facility] Heart rate 2021-04-07 23:58:00 103 /min [facility] Body temperature 2021-04-07 23:58:00 37.11 Ernestine [facility] Respiratory rate 2021-04-07 23:58:00 16 /min [facility] Body height 2021-04-07 23:58:00 167.6 cm [facility] Body weight 2021-04-07 23:58:00 110.814 kg [facility] BMI 2021-04-07 23:58:00 39.43 kg/m2 [facility] Oxygen saturation in 2021-04-07 23:58:00 99 /min [facility] Arterial blood by [facility] Pulse oximetry Branch Systolic blood 2020-12-17 22:49:00 136 mm[Hg] Univer sity of pressure [facility] Diastolic blood 2020-12-17 22:49:00 71 mm[Hg] Unive rsity of pressure [facility] Heart rate 2020-12-17 22:49:00 93 /min [facility] Body temperature 2020-12-17 22:49:00 36.72 Ernestine [facility] 2020-12-17 22:49:00 18 /min [facility] Body height 2020-12-17 22:49:00 167.6 cm [facility] Body weight 2020-12-17 22:49:00 111.131 kg [facility] BMI 2020-12-17 22:49:00 39.54 kg/m2 [facility] Oxygen saturation in 2020-12-17 22:49:00 99 /min [facility] Arterial blood by [facility] Pulse oximetry [place] Procedures Procedure Date / Time Performed Performing Clinician Sour e POCT SARS-COV-2 2022-07-27 15:03:00 CallawayBryan schmitz [place] [facility] [place] ANTIGEN (BINAX NOW) Medical [facility] EXTERNAL PROVIDER 2022-07-27 05:01:00 Doctor Unassigned, No [facility] EXTERNAL FIT DNA 2022-07-24 13:00:00 Doctor Unassigned, No [facility] TDAP VACCINE, >11 YRS, 2022-07-09 15:17:24 Richard Dang [facility] IM Josephine Julia [facility] SARS-COV-2 COVID-19 2022-07-09 15:16:00 Laurence [facility] NATALIA-SUCROSE VACCINE Josephine Dumont [facility] 12 YRS+, BIVALENT 0.3ML, IM, (PFIZER ODYLE TOP BOOSTER) POCT SARS-COV-2 2022-03-04 17:18:00 Brain Bruce [place] ANTIGEN (BINAX NOW) Medical [facility] POCT MOLECULAR STREP 2022-03-04 16:58:00 Unknown, Attending [facility] POCT MOLECULAR FLU 2022-03-02 20:47:00 Unknown, Attending [facility] POCT MOLECULAR STREP 2022-03-02 20:44:00 Unknown, Attending [facility] ASSIGNMENT OF BENEFITS 2022-03-02 20:25:34 Doctor Unassigned, No [facility] Name [facility] TROPONIN I 2021-11-04 08:08:00 Tahira Alejandre [facility] MAGNESIUM 2021-11-04 07:06:00 Tahira Alejandre [facility] COMP. METABOLIC PANEL 2021-11-04 07:06:00 Tahira Alejandre [facility] ([id number]) [facility] URINALYSIS 2021-11-04 06:16:00 Tahira Alejandre [facility] XR CHEST 1 VW 2021-11-04 06:11:48 Tahira Alejandre [facility] TROPONIN I 2021-11-04 06:06:00 Tahira Alejandre [facility] CBC WITH DIFF 2021-11-04 06:06:00 Macarena [facility] N-TERMINAL PRO-BNP 2021-11-04 06:06:00 Tahira Alejandre [facility] CONSENT/REFUSAL FOR 2021-11-04 05:36:25 Doctor Unassigned, No Un [facility] DIAGNOSIS AND Name [facility] TREATMENT POCT URINALYSIS 2021-04-07 23:57:00 Keren Brooks [facility] POCT URINALYSIS 2020-12-17 00:00:00 Cecilia [facility] Encounters Start End Encounter Admission Attending Care Care Encounter Source Date/Time Date/Time Type Type Clinicians Facility Department ID 2023-01-08 2023-01-08 Outpatient Kayla DANG [facility] [id number] Univers 08:30:00 08:30:00 JOSEPHINE [facility] 2022-09-11 2022-09-11 Outpatient Kayla DANG [facility] [id number] Univers 00:00:00 00:00:00 , JOSEPHINE it y of [facility] 2022-08-26 2022-08-26 [facility] 1.2.840.114 [id number] Univers 00:00:00 00:00:00 , Josephine HEALTH 350.1.13.10 ity of M [place] 4.2.7.2.686 Milad as VINNIE?BLEA [phone] Tn wilner [address] OFFICE [facility] 2022-08-05 2022-08-05 [facility]phone [facility] 1.2.840.114 [id number] Univers 00:00:00 00:00:00 , Josephine HEALTH 350.1.13.10 ity of M [place] 4.2.7.2.686 Milad as VINNIE?BLEA [phone] [facility] [address] OFFICE [facility] 2022-08-04 2022-08-04 Telephone [facility] 1.2.840.114 [id number] Univers 00:00:00 00:00:00 , Josephine HEALTH 350.1.13.10 ity of M [place] 4.2.7.2.686 Milad as VINNIE?BLEA [phone] Tn wilner [address] OFFICE [facility] 2022-08-04 2022-08-04 [facility] 1.2.840.114 [id number] Univers 00:00:00 00:00:00 , Josephine HEALTH 350.1.13.10 ity of M [place] 4.2.7.2.686 Milad as VINNIE?BLEA [id number] Tn wilner [address] OFFICE [facility] 2022-07-27 2022-07-27 Outpatient R CESIA [facility] [id number] Univers 09:20:00 10:03:35 BRYAN ity of [facility] 2022-07-27 2022-07-27 Urgent Bryan Callaway [facility] 1.2.840.11 [id number] Univers 09:20:00 10:03:35 Care Unknown, [facility] HEALTH 350.1.13.10 ity of [place] 4.2.7.2.686 Milad as VINNIE?BLEA [id number] [facility] [address] MEDICAL OFFICE BUILDING 2022-07-27 2022-07-27 Orders Doctor JAXON 1.2.840.114 [id number] Univers 00:00:00 00:00:00 Only Unassigned, NICOLE 350.1.13.10 ity of [place] [facility] 4.2.7.2.686 Milad as [id number] [address] 2022-07-17 2022-07-17 Outpatient R LAURENCE [facility] [id number] Univers 08:00:00 08:00:00 , JOSEPHINE it y of [facility] 2022-07-10 2022-07-10 Case [facility] 1.2.840.114 [id number] Univers 00:00:00 00:00:00 Management , Josephine JUDITH 350.1.13.10 ity of [place] 4.2.7.2.686 Milad as VINNIE?BLEA [phone] [facility] [address] MEDICAL OFFICE [facility] 2022-07-09 2022-07-09 [facility], [facility] 1.2.840.1 [id number] [facility] 10:30:00 10:45:00 Visit Josephine Dang [facility] 350.1 .13.10 ity [facility] 4.2.7.2.686 Milad as VINNIE?BLEA [phone] [facility] [address] MEDICAL OFFICE [facility] 2022-07-09 2022-07-09 Outpatient R LAURENCE [facility] [id number] Univers 09:45:00 10:44:11 , JOSEPHINE hall y [facility] 2022-07-09 2022-07-09 Office [facility] 1.2.840.114 [id number] Univers 09:45:00 10:44:11 Visit , Josephine JUDITH 350.1.13.10 ity [facility] 4.2.7.2.686 Milad as VINNIE?BLEA [id number] [facility] [address] MEDICAL OFFICE BUILDING 2022-03-04 2022-03-04 Outpatient R HUNG [facility] [id number] Univers 10:00:00 11:22:48 TEGANIA ity [facility] 2022-03-04 2022-03-04 Urgent Lian Paulino [facility] 1.2.840.114 [id number] Univers 10:00:00 10:20:00 Care Unknown, Attending HEALTH 350.1.13.10 ity of [facility] 4.2.7.2.686 Milad as VINNIE?BLEA [id number] [address] MEDICAL OFFICE [facility] 2022-03-04 2022-03-04 Rolan Paulino [facility] 1.2.840.114 [id number] Univers 00:00:00 00:00:00 (Out) Tegannj HEALTH 350.1.13.10 it y of [facility] 4.2.7.2.686 Milad as VINNIE?BLEA [id number] [address] OFFICE [facility] 2022-03-02 2022-03-[address] Lemus [facility] 1.2.840.114 [id number] Univers 14:20:00 14:40:00 Care Unknown, Attending HEALTH 350.1.13.10 ity of [place] 4.2.7.2.686 Milad as VINNIE?BLEA [id number] [address] OFFICE [facility] 2022-03-02 2022-03-02 Outpatient R SOFIYA [facility] [id number] Univers 14:20:00 14:20:00 COURT [facility] 2022-03-02 2022-03-02 Orders Doctor JAXON 1..840.114 [id number] Univers 00:00:00 00:00:00 Only Unassigned, NICOLE 350.1.13.10 ity of [place] [facility] 4.2.7.2.686 Milad as [id number] [address] 2022-03-02 2022-03-02 Rolan Lemus [facility] 1.2.840.114 [id number] Univers 00:00:00 00:00:00 (Out) [facility] 350.1.13.10 it y of [facility] 4.2.7.2.686 Milad as VINNIE?BLEA [id number] [address] MEDICAL OFFICE [facility] 2021-11-04 2021-11-04 Emergency X Tahira ALEJANDRE [facility] ERT [id number] Univers 00:43:00 04:42:00 ity [facility] 2021-11-04 2021-11-04 Emergency Tahira Alejandre [facility] 1.2.840.114 [id number] Univers 00:43:00 04:42:00 Lauren LANCE 350.1.13.10 i ty [facility] 4.2.7.2.686 [place] [facility] [id number] [address] 2021-08-28 2021-08-28 Urgent [facility] 1.2.840.114 [id number] Univers 18:00:00 18:20:00 Care [facility] 350.1.13.10 it y of [place] 4.2.7.2.686 Milad as VINNIE?BLEA [id number] [address] OFFICE [facility] 2021-08-28 2021-08-28 Outpatient [facility] [id number] Univers 18:00:00 18:00:00 [facility]-07 2021-04-07 Outpatient R CECILIA, [facility] [id number] Univers 18:00:00 19:15:58 [facility] o f [facility] 2021-04-07 2021-04-07 Urgent [facility] 1.2.840.114 [id number] Univers 18:00:00 18:20:00 Care [facility] 350.1.13.10 i ty of [place] 4.2.7.2.686 Milad as VINNIE?BLEA [id number] [address] OFFICE [facility] 2021-03-30 2021-03-30 Laboratory Only, Ang Db Test [facility] 1.2.8 40.114 [id number] Univers 19:15:00 19:30:00 Only [facility] 350.1.13.10 ity of [place] 4.2.7.2.686 Milad as VINNIE?BLEA [id number] [address] MEDICAL OFFICE [facility] 2021-03-30 2021-03-30 Outpatient [facility] [id number] Univers 19:15:00 17:26:15 ELIZABETH jennings [facility] 2020-12-17 2020-12-17 [facility] 1.2.840.114 [id number] Univers 17:41:59 18:05:04 Care [facility] 350.1.13.10 i ty of [place] 4.2.7.2.686 Milad as Vinnie?Blea [id number] Tn dical [address] Medical Office Building 2020-12-17 2020-12-17 Outpatient [facility] [id number] Univers 17:40:00 17:40:00 [facility] michaela o f [facility] Results Test Description Test Time Test Comments Results Result Comments Source POCT SARS-COV-2 ANTIGEN (BINAX NOW) 2022-07-27 15:03:00 Test Item Value Reference Range Interpretation Comme nts POCT SARS-COV-2 ANTIGEN (test code Not Detected Not Detected = 35879-7) On board controls acceptable with Yes C Line (test code = 3574) LUCILLE (test code = LUCILLE) accurate development and interpretation of all internal controls Lab Interpretation (test code = Normal 60455-9) [facility] SARS-COV-2 ANTIGEN (BINAX NOW)2022-03-04 17:18:00 Test Item Value Reference Range Interpretation Comments POCT SARS-COV-2 ANTIGEN (test Not Detected Not Detected code = 87946-6) On board controls acceptable Yes with C Line (test code = 3574) [facility] MOLECULAR [id number] 17:06:17 Test Item Value Reference Range Interpretation Comments POCT Molecular Strep (test code = Negative Negative 21481-5) Lab Interpretation (test code = Normal 47837-4) [facility] MOLECULAR [id number] 20:59:06 Test Item Value Reference Range Interpretation Comments POCT Molecular FluA (test code = Negative Negative 85278-5) POCT Molecular FluB (test code = Negative Negative 10729-2) Lab Interpretation (test code = Normal 42428-9) [facility] MOLECULAR [id number] 20:51:56 Test Item Value Reference Range Interpretation Comments POCT Molecular Strep (test code = Negative Negative 58433-5) Lab Interpretation (test code = Normal 22380-8) [facility] [id number] 08:49:14 Test Item Value Reference Interpretation Comments Range TROPONIN I (test 0.001 ng/mL See_Comment [Automated code = 0941236548) message] The system which generated this result transmitted reference range : <=0.034. The reference range was not used to interpret this result as normal/abnormal . LUCILLE (test code = Reference (Normal) LUCILLE) Range (defined by the 99th percentile reference limit): <= 0.034 ng/mL Note: Cardiac troponin begins to rise 3-4 hours after the onset of ischemia. Repeat in 4-6 hours if the sample was drawn within 3-4 hours of the onset of the symptom and found normal. Diagnosis of myocardial injury is made with acute changes in cTn concentrations with at least one serial sample above the 99th percentile upper reference limit (URL), taken together with the patient's clinical presentation. Biotin has been reported to cause a negative bias, interpret results relative to patient's use of biotin. Lab Interpretation Normal (test code = 06265-8) [facility] (29235)2021-11-04 07:29:49 Test Item Value Reference Range Interpretation Comments NA (test code = 138 mmol/L 135-145 0728957038) K (test code = 5.1 mmol/L 3.5-5 H 3932224750) CL (test code = 105 mmol/L 98-108 1086349733) CO2 TOTAL (test code = 24 mmol/L 23-31 2350000797) AGAP (test code = 2-16 6741595391) BUN (test code = 28 mg/dL 7-23 H 9975744264) GLUCOSE (test code = 132 mg/dL 70-110 H 4917871654) CREATININE (test code = 1.50 mg/dL 0.5-1.04 H 4648049032) TOTAL BILI (test code = 0.7 mg/dL 0.1-1.1 3570131770) CALCIUM (test code = 9.0 mg/dL 8.6-10.6 5684076705) T PROTEIN (test code = 7.0 g/dL 6.3-8.2 8297182360) ALBUMIN (test code = 3.8 g/dL 3.5-5 2945417903) ALK PHOS (test code = 39 U/L 34-122 4865083736) ALTv (test code = 30 U/L 5-35 1742-6) AST(SGOT) (test code = 39 U/L 13-40 9374622086) eGFR (test code = mL/min/1.73m2 6426998915) LUCILLE (test code = LUCILLE) Association of Glomerular Filtration Rate (GFR) and Staging of Kidney Disease* + --+ --+ ------+| GFR (mL/min/1.73 m2) ?| With Kidney Damage ?| ?Without Kidney Damage+ --------+ --------+ +| ?>90 ?| ?Stage one ?| ? Normal ?+ ---+ ---+ -------+| ?60-89 ?| ?Stage two ?| ? Decreased GFR ? + --+ --+ ------+| ?30-59 ?| ?Stage three ?| ? Stage three ? + --+ --+ ------+| ?15-29 ?| ?Stage four ? | ? Stage four ?+ ---+ ---+ -------+| ?<15 (or dialysis) ? ?| ?Stage five ? | ? Stage five ?+ ---+ ---+ -------+ *Each stage assumes the associated GFR level has been in effect for at least three months. ?Stages 1 to 5, with or without kidney disease, indicate chronic kidney disease. Notes: Determination of stages one and two (with eGFR >59mL/min/1.73 m2) requires estimation of kidney damage for at least three months as defined by structural or functional abnormalities of the kidney, manifested by either:Pathological abnormalities or Markers of kidney damage (including abnormalities in the composition of the blood or urine or abnormalities in imaging tests). Lab Interpretation Abnormal (test code = 28661-7) [facility] 07:29:49 Test Item Value Reference Range Interpretation Comments MAGNESIUM (test code = 4968135909) 1.6 mg/dL 1.7-2.4 L Lab Interpretation (test code = Abnormal 51963-4) [facility] [id number] 07:08:44 Test Item Value Reference Interpretation Comments Range TROPONIN I (test 0.012 ng/mL See_Comment [Automated code = 9508109424) message] The system which generated this result transmitted reference range : <=0.034. The reference range was not used to interpret this result as normal/abnormal . LUCILLE (test code = Reference (Normal) LUCILLE) Range (defined by the 99th percentile reference limit): <= 0.034 ng/mL Note: Cardiac troponin begins to rise 3-4 hours after the onset of ischemia. Repeat in 4-6 hours if the sample was drawn within 3-4 hours of the onset of the symptom and found normal. Diagnosis of myocardial injury is made with acute changes in cTn concentrations with at least one serial sample above the 99th percentile upper reference limit (URL), taken together with the patient's clinical presentation. Biotin has been reported to cause a negative bias, interpret results relative to patient's use of biotin. Lab Interpretation Normal (test code = 29527-4) [facility] [id number] 07:05:43 Test Item Value Reference Range Interpretation Comments NT-proBNP (test code 40 pg/mL See_Comment [Autom ated = 6380752438) message] The system which generated this result transmitted reference range : <=125. The reference range was not used to interpret this result as normal/abnormal . LUCILLE (test code = LUCILLE) Biotin has been reported to cause a negative bias, interpret results relative to patient's use of biotin. Lab Interpretation Normal (test code = 91416-6) [facility] WITH [id number] 06:43:20 Test Item Value Reference Range Interpretation Comments WBC (test code = See_Comment [Automated 3990-2) message] The sy stem which generated this result transmitted reference range : 4.30 - 11.10 10*3/?L. The reference range was not used to interpret this result as normal/abnormal . RBC (test code = See_Comment L [Automated 039-8) message] The sy stem which generated this result transmitted reference range : 3.93 - 5.25 10*6/?L. The reference range was not used to interpret this result as normal/abnormal . HGB (test code = 11.8 g/dL 11.6-15 718-7) HCT (test code = 37.6 % 35.7-45.2 4544-3) MCV (test code = 99.2 fL 80.6-95.5 H 787-2) MCH (test code = 31.1 pg 25.9-32.8 785-6) MCHC (test code = 31.4 g/dL 31.6-35.1 L 786-4) RDW-SD (test code = 47.4 fL 39-49.9 91979-8) RDW-CV (test code = 13.2 % 12-15.5 788-0) PLT (test code = See_Comment [Automated 777-3) message] The sy stem which generated this result transmitted reference range : 166 - 358 10*3/ ?L. The reference r yesika was not used to interpret this result as normal/abnormal . MPV (test code = 11.8 fL 9.5-12.9 69919-0) NRBC/100 WBC (test See_Comment [Automat ed code = 1701013061) message] The system which generated this result transmitted reference range : 0.0 - 10.0 /100 WBCs. The refer ence range was not u sed to interpret th is result as normal/abnormal . NRBC x10^3 (test code See_Comment [Auto mated = 1730052954) message] The s ystem which generated this result transmitted reference range : 10*3/?L. The reference range was not used to interpret this result as normal/abnormal . GRAN MAT (NEUT) % 55.0 % (test code = 770-8) IMM GRAN % (test code 0.30 % = 5221297899) LYMPH % (test code = 29.1 % 736-9) MONO % (test code = 8.9 % 5905-5) EOS % (test code = 5.8 % 713-8) BASO % (test code = 0.9 % 706-2) GRAN MAT x10^3(ANC) 5.73 10*3/uL 1.88-7.09 (test code = 8034205179) IMM GRAN x10^3 (test 0.03 10*3/uL 0-0.06 code = 1448146659) LYMPH x10^3 (test code 3.03 10*3/uL 1.32-3.29 = 731-0) MONO x10^3 (test code 0.93 10*3/uL 0.33-0.92 H = 742-7) EOS x10^3 (test code = 0.60 10*3/uL 0.03-0.39 H 711-2) BASO x10^3 (test code 0.09 10*3/uL 0.01-0.07 H = 704-7) Lab Interpretation Abnormal (test code = 69658-6) [facility] URINALYSIS W SPECIFIC [id number] 00:03:00 Test Item Value Reference Range Interpretation Comments POCT U SP GRAV azo stained 1.005-1.025 (test code = 3255) POCT PH U (test azo stained 5-8 code = 3254) POCT U LEUK EST azo stained Negative - Negative (test code = 3263) POCT U NIT (test azo stained Negative - Negative code = 3262) POCT U PROT (test azo stained Negative - Negative code = 3259) POCT U GLU (test azo stained Negative - Negative code = 3256) POCT U KETONE azo stained Negative - Negative (test code = 3258) POCT U UROBILI azo stained 0.2-1 (test code = 3260) POCT U BILI (test azo stained Negative - Negative code = 3261) POCT U BLD (test azo stained Negative - Negative code = 3257) POCT U COLOR (test azo stained code = 3266) POCT U APPEAR azo stained (test code = 3267) LUCILLE (test code = accurate development and LUCILLE) interpretation of all internal controls [facility] URINALYSIS W SPECIFIC [id number] 22:52:00 Test Item Value Reference Range Interpretation Comments POCT U SP GRAV (test code = 1.010 mg/dl 1.005-1.025 3255) POCT PH U (test code = 3254) 5 mg/dl 5-8 POCT U LEUK EST (test code = trace Negative - Negative 3263) POCT U NIT (test code = 3262) negative Negative - Negative POCT U PROT (test code = trace Negative - Negative 3259) POCT U GLU (test code = 3256) negative Negative - Negative POCT U KETONE (test code = negative Negative - Negative 325) POCT U UROBILI (test code = normal 0.2-1 3260) POCT U BILI (test code = negative Negative - Negative 326) POCT U BLD (test code = 3257) about 50 Negative - Negative POCT U COLOR (test code = yellow 3266) POCT U APPEAR (test code = cloudy 326) [facility]"
[2022-11-10 11:56] LABS: Absolute Lymphocytes (CBC) 1.6 K/uL (0.7-4.9); Hematocrit 38.3 % (36.0-45.0); MCV 94.3 fL (80-100); MPV 9.4 fL (7.6-11.3); Platelets 309 thou/uL (152-406); RBC Red Blood Cell Count 4.06 M/uL (3.86-4.86)
[2022-11-10 12:06] LABS: Albumin 3.7 g/dL (3.4-5.0); Bilirubin Total 0.4 mg/dL (0.2-1.0); Potassium 3.9 mEq/L (3.5-5.1); Protein, Total 8.3 g/dL (6.4-8.2)
[2022-11-10 12:34] LABS: Specific Gravity 1.008 (1.005-1.030); Urine Bacteria <20 /HPF (<20); Urine Bilirubin NEGATIVE (Negative); Urine Blood Trace (Negative); Urine Clarity Turbid (Clear); Urine Color Colorless (Yellow); Urine Glucose NEGATIVE (Negative); Urine Protein NEGATIVE (Negative); Urine RBC <5 /HPF (None Seen); Urine Urobilinogen Normal (Normal)
[2022-11-10] MEDS ORDERED: NA CHLORIDE 0.9% 1,000 ML ONE (13:11)
--- NOTE | 2022-11-10 13:19 | EDPHYS ---
Physician Documentation [facility] Name: Esmer Coughlin Age: 62 yrs Sex: Female : 1960 Arrival Date: 11/10/2022 Time: 10:46 Bed 18 Private MD: ED Physician Jose Roberto Anguiano HPI: 11/10 11:15 This 62 yrs old Female presents to ER via Ambulatory with complaints of Blood Pressure snw Problem. 11:15 Onset: The symptoms/episode began/occurred today. Associated signs and symptoms: snw Pertinent positives: yesterday with diarrhea and nausea, feels like she wants to jump out of her skin today and BP is a bit higher than her norm.. Historical: - Allergies: 10:57 Codeine; ap3 - Home Meds: 10:57 losartan-hydrochlorothiazide 100-12.5 mg oral tablet [Active]; ap3 - PMHx: 10:57 Hypertensive disorder; Hypercholesterolemia; Gout; ap3 - Immunization history:: Client reports receiving the 2nd dose of the Covid vaccine. - Social history:: Smoking status: Patient denies any tobacco usage or history of. ROS: 11:14 Constitutional: Negative for fever, chills, and weight loss, Eyes: Negative for injury, snw pain, redness, and discharge, ENT: Negative for injury, pain, and discharge, Neck: Negative for injury, pain, and swelling, Cardiovascular: Negative for chest pain, palpitations, and edema, Respiratory: Negative for shortness of breath, cough, wheezing, and pleuritic chest pain. 11:14 Back: Negative for injury and pain, : Negative for injury, bleeding, discharge, and swelling, MS/Extremity: Negative for injury and deformity, Skin: Negative for injury, rash, and discoloration, Neuro: Negative for headache, weakness, numbness, tingling, and seizure. 11:14 Abdomen/GI: Positive for nausea, diarrhea, of the left upper quadrant. 11:14 Psych: Positive for anxiety, "feel like I want to jump out of my skin". Exam: 11:14 Constitutional: This is a well developed, well nourished patient who is awake, alert, snw and in no acute distress. Head/Face: Normocephalic, atraumatic. Eyes: Pupils equal round and reactive to light, extra-ocular motions intact. Lids and lashes normal. Conjunctiva and sclera are non-icteric and not injected. Cornea within normal limits. Periorbital areas with no swelling, redness, or edema. ENT: Nares patent. No nasal discharge, no septal abnormalities noted. Tympanic membranes are normal and external auditory canals are clear. Oropharynx with no redness, swelling, or masses, exudates, or evidence of obstruction, uvula midline. Mucous membranes moist. Neck: Trachea midline, no thyromegaly or masses palpated, and no cervical lymphadenopathy. Supple, full range of motion without nuchal rigidity, or vertebral point tenderness. No Meningismus. Chest/axilla: Normal chest wall appearance and motion. Nontender with no deformity. No lesions are appreciated. Cardiovascular: Regular rate and rhythm with a normal S1 and S2. No gallops, murmurs, or rubs. Normal PMI, no JVD. No pulse deficits. Respiratory: Lungs have equal breath sounds bilaterally, clear to auscultation and percussion. No rales, rhonchi or wheezes noted. No increased work of breathing, no retractions or nasal flaring. Abdomen/GI: Soft, non-tender, with normal bowel sounds. No distension or tympany. No guarding or rebound. No evidence of tenderness throughout. Back: No spinal tenderness. No costovertebral tenderness. Full range of motion. Skin: Warm, dry with normal turgor. Normal color with no rashes, no lesions, and no evidence of cellulitis. MS/ Extremity: Pulses equal, no cyanosis. Neurovascular intact. Full, normal range of motion. Neuro: Awake and alert, GCS 15, oriented to person, place, time, and situation. Cranial nerves II-XII grossly intact. Motor strength 5/5 in all extremities. Sensory grossly intact. Cerebellar exam normal. Normal gait. Psych: Awake, alert, with orientation to person, place and time. Behavior, mood, and affect are within normal limits. Vital Signs: 10:56 BP 147 / 68; Pulse 91; Resp 18; Temp 98.1; Pulse Ox 97% ; Weight 108.86 kg; Pain 3/10; ap3 11:35 BP 144 / 51; Pulse 73; Resp 17; Temp 97.8; Pulse Ox 99% on R/A; rs5 12:35 BP 133 / 53; Pulse 79; Resp 17; Pulse Ox 99% on R/A; rs5 13:15 BP 118 / 48; Pulse 74; Resp 17; Pulse Ox 99% on R/A; rs5 14:25 BP 125 / 66; Pulse 76; Resp 17; Pulse Ox 99% on R/A; rs5 10:56 Pain Scale: Adult ap3 MDM: 11:05 Patient medically screened. snw 11:16 Differential diagnosis: electrolyte derangement, anxiety, dehydration. Data reviewed: snw vital signs, nurses notes, lab test result(s). 11/10 11:05 Order name: CBC with Diff; Complete Time: 12:02 snw 11/10 11:05 Order name: CMP; Complete Time: 12:08 snw 11/10 11:05 Order name: Lipase; Complete Time: 12:08 snw 11/10 11:05 Order name: Urinalysis w/ reflexes; Complete Time: 12:43 snw 11/10 11:05 Order name: IV Saline Lock; Complete Time: 11:51 snw 11/10 11:05 Order name: Labs collected and sent; Complete Time: 11:51 snw Administered Medications: 13:05 Drug: NS 0.9% IV 1000 ml Route: IV; Rate: 1000 ml; Site: right antecubital; rs5 13:25 Follow up: No adverse reactio noted rs5 14:40 Follow up: IV Status: Completed infusion rs5 Disposition: 16:31 Co-signature as Attending Physician, Jose Roberto Anguiano MD I reviewed the patient's care rn provided by the Advanced Practice Provider and agree with the diagnosis and treatment plan. Disposition Summary: 11/10/22 13:18 Discharge Ordered Location: Home snw Condition: Stable snw Diagnosis - Volume depletion, unspecified snw Followup: snw - With: Emergency Department - When: As needed - Reason: Worsening of condition Followup: snw - With: Private Physician - When: 2 - 3 days - Reason: Recheck today's complaints, Continuance of care, Re-evaluation by your physician Discharge Instructions: - Discharge Summary Sheet snw - Dehydration, Adult snw - Rehydration, Adult snw Forms: - Medication Reconciliation Form snw - Thank You Letter snw - Antibiotic Education snw - Prescription Opioid Use snw - Patient Portal Instructions snw - Leadership Thank You Letter snw - Work release form rs5 Signatures: Dispatcher [employer] EDRita Hutchinson, RN WOUND CARE-C RN WOUND CARE-Csnw Jose Roberto Anguiano MD MD rn Genia Cespedes RN RN ap3 Pito Loyd RN RN rs5
--- NOTE | 2022-11-10 13:19 | ER ---
Nurse's Notes [facility] Name: Esmer Coughlin Age: 62 yrs Sex: Female : 1960 Arrival Date: 11/10/2022 Time: 10:46 Bed 18 Private MD: Diagnosis: Volume depletion, unspecified Presentation: 11/10 10:56 Chief complaint: Patient states: she took her blood pressure this morning and her ap3 systolic pressures were in the 140's/150's which she reports is high for her. patient states she had what she believed to be a stomach virus yesterday, and didn't take her blood pressure medications but reports taking it today. Coronavirus screen: At this time, the client does not indicate any symptoms associated with coronavirus-19. Ebola Screen: No symptoms or risks identified at this time. Initial Sepsis Screen: Does the patient meet any 2 criteria? No. Patient's initial sepsis screen is negative. Does the patient have a suspected source of infection? No. Patient's initial sepsis screen is negative. Risk Assessment: Do you want to hurt yourself or someone else? Patient reports no desire to harm self or others. Onset of symptoms was November 10, 2022. 10:56 Method Of Arrival: Ambulatory ap3 10:56 Acuity: ADRI 3 ap3 Triage Assessment: 10:58 General: Appears in no apparent distress. Behavior is calm, cooperative, appropriate ap3 for age. Pain: Complains of pain in abdomen. Neuro: Level of Consciousness is awake, alert, obeys commands, Oriented to person, place, time, situation. Cardiovascular: Patient's skin is warm and dry. Respiratory: Airway is patent Respiratory effort is even, unlabored, Respiratory pattern is regular, symmetrical. GI: Reports diarrhea, nausea, yesterday, but cleared up today. Historical: - Allergies: 10:57 Codeine; ap3 - Home Meds: 10:57 losartan-hydrochlorothiazide 100-12.5 mg oral tablet [Active]; ap3 - PMHx: 10:57 Hypertensive disorder; Hypercholesterolemia; Gout; ap3 - Immunization history:: Client reports receiving the 2nd dose of the Covid vaccine. - Social history:: Smoking status: Patient denies any tobacco usage or history of. Screenin:59 [facility] ED Fall Risk Assessment (Adult) History of falling in the last 3 months, ap3 including since admission No falls in past 3 months (0 pts). Abuse screen: Denies threats or abuse. Nutritional screening: No deficits noted. Tuberculosis screening: No symptoms or risk factors identified. Assessment: 11:30 General: Appears in no apparent distress. comfortable, Behavior is calm, cooperative. rs5 Pain: Complains of pain in abdomen, left upper quadrant Pain does not radiate. Pain currently is 3 out of 10 on a pain scale. Quality of pain is described as aching, Pain began suddenly, 1 day ago. Pt states 'probably just a stomach a stomach bug, I'm not really worried about it' Is continuous. Neuro: Level of Consciousness is awake, alert, obeys commands, Oriented to person, place, time, situation. Cardiovascular: Heart tones S1 S2 Rhythm is regular. Respiratory: Airway is patent Respiratory effort is even, unlabored, Respiratory pattern is regular, symmetrical. GI: Abdomen is round non-distended, Bowel sounds present X 4 quads. Abd is soft and non tender X 4 quads. Reports upper abdominal pain, diarrhea, Patient currently denies nausea, vomiting. : No signs and/or symptoms were reported regarding the genitourinary system. EENT: No signs and/or symptoms were reported regarding the EENT system. Derm: Skin is pink, warm \T\ dry. Musculoskeletal: Range of motion: intact in all extremities. 11:40 Reassessment: No changes from previously documented assessment. Patient is alert, rs5 oriented x 3, equal unlabored respirations, skin warm/dry/pink. 12:20 Reassessment: Patient is alert, oriented x 3, equal unlabored respirations, skin aa5 warm/dry/pink. Pt ambulatory to restroom . 13:10 Reassessment: No changes from previously documented assessment. Patient and/or family rs5 updated on plan of care and expected duration. Pain level reassessed. Patient is alert, oriented x 3, equal unlabored respirations, skin warm/dry/pink. Patient denies pain at this time. 13:30 Reassessment: Pt notified they will be discharge once fluids are finished. Pt rs5 verbalized understanding. 700 ml left in 1000 ml bag of NS infusing into right AC. 14:37 Reassessment: Patient and/or family updated on plan of care and expected duration. Pain rs5 level reassessed. 200 ml left in 1000 ml bag of NS infusing into right AC. 14:52 Reassessment: Patient and/or family updated on plan of care and expected duration. Pain rs5 level reassessed. Patient is alert, oriented x 3, equal unlabored respirations, skin warm/dry/pink. 1L NS finished. Vital Signs: 10:56 BP 147 / 68; Pulse 91; Resp 18; Temp 98.1; Pulse Ox 97% ; Weight 108.86 kg; Pain 3/10; ap3 11:35 BP 144 / 51; Pulse 73; Resp 17; Temp 97.8; Pulse Ox 99% on R/A; rs5 12:35 BP 133 / 53; Pulse 79; Resp 17; Pulse Ox 99% on R/A; rs5 13:15 BP 118 / 48; Pulse 74; Resp 17; Pulse Ox 99% on R/A; rs5 14:25 BP 125 / 66; Pulse 76; Resp 17; Pulse Ox 99% on R/A; rs5 10:56 Pain Scale: Adult ap3 ED Course: 10:48 Patient arrived in ED. ts1 10:51 Rita Fowler FNP-C is PHCP. snw 10:51 Jose Roberto Anguiano MD is Attending Physician. snw 10:57 Triage completed. ap3 10:59 Arm band placed on right wrist. ap3 11:25 Pito Loyd, RN is Primary Nurse. rs5 11:30 Patient has correct armband on for positive identification. Placed in gown. Bed in low rs5 position. Call light in reach. Side rails up X2. 11:40 Inserted saline lock: 20 gauge in right antecubital area, using aseptic technique. rs5 Blood collected. 14:53 No provider procedures requiring assistance completed. IV discontinued, intact, rs5 bleeding controlled, No redness/swelling at site. Administered Medications: 13:05 Drug: NS 0.9% IV 1000 ml Route: IV; Rate: 1000 ml; Site: right antecubital; rs5 13:25 Follow up: No adverse reactio noted rs5 14:40 Follow up: IV Status: Completed infusion rs5 Medication: 14:54 VIS not applicable for this client. rs5 Intake: Outcome: 13:18 Discharge ordered by . snw 14:53 Discharged to home ambulatory, with significant other. rs5 14:53 Condition: stable 14:53 Discharge instructions given to patient, Instructed on discharge instructions, follow up and referral plans. Demonstrated understanding of instructions, follow-up care. 14:57 Patient left the ED. rs5 Signatures: Rita Fowler, [employer]-C [employer]-Csnw Claudia Schumacher, RN RN aa5 Genia Cespedes RN RN ap3 Pito Loyd RN RN rs5 Nithya Lazar PAS PAS ts1 Corrections: (The following items were deleted from the chart) 11:28 10:56 Chief complaint: Patient states: she took her blood pressure this morning and her ap3 systolic pressures were in the 104's/150's which she reports is high for her. patient states she had what she believed to be a stomach virus yesterday, and didn't take her blood pressure medications but reports taking it today. ap3 14:05 13:30 Reassessment: Pt notified they will be discharge when fluids are finished. Pt rs5 verbalized understanding. rs5 14:38 13:30 Reassessment: Pt notified they will be discharge once fluids are finished. Pt rs5 verbalized understanding. 500 ml left in 1000 ml bag of NS infusing into right AC. rs5 14:51 14:50 IV Status: Completed infusion rs5 rs5
[2022-11-10 15:04] VITALS: TEMP 97.8; O2SAT 99
[2022-11-10 15:09] VITALS: BP 125/66
== END 2022-11-10 14:57 | disposition home or self-care (01) ==
LOC: ER 10:46
DX: E86.9 Volume depletion, unspecified (principal); I10 Essential (primary) hypertension; Z88.5 Allergy status to narcotic agent
CPT/HCPCS: 85025; 81001; 36415; 83690; 80053; J7030; 96360; 96361; 99284